=== PATIENT | female | born 1980 | race American Indian/Alaskan Native ===

== ENCOUNTER 2022-01-09 08:25 | Outpatient (CLI) | payer BC ==
--- NOTE | 2022-01-09 15:30 | Treadmill Report ---
DATE OF SERVICE: 01/09/2022 TREADMILL NUCLEAR STRESS TEST REFERRING PHYSICIAN: Dr. Landry. PROTOCOL: The patient was assessed in postoperative state and given 10 mCi of technetium at rest. The patient had rest imaging. The patient underwent exercise treadmill stress test per protocol. At peak stress, the patient was given 26 mCi of technetium. Shortly thereafter, the patient had stress imaging. Resting blood pressure is 120/80, resting heart rate is 80. The patient exercised on a standard David protocol treadmill for [address] changes, arrhythmia or chest pain during stress or recovery. Peak heart rate is 156, which is 89% of predicted. Peak blood pressure is 158/90. Treadmill portion of the stress test is normal. Nuclear portion is pending. CONCLUSIONS: 1. Normal exercise treadmill stress test without evidence of ST changes, arrhythmias, or chest pain during stress or recovery. 2. Average exercise tolerance. 3. Appropriate heart rate/blood pressure response in recovery. 4. Nuclear images pending and will be dictated separately. TID: [id number] RECEIPT: [id number] SBM/KELSEA
--- NOTE | 2022-01-10 11:49 | Treadmill Report ---
DATE OF SERVICE: 01/09/2022 NUCLEAR STRESS TEST REFERRING PHYSICIAN: Hospitalist gerson. PROTOCOL: The patient was brought to stress test lab in postabsorptive state, given 10 mCi of technetium at rest. The patient had an exercise stress test per standard protocol. At peak stress, the patient was given 26 mCi of technetium. Shortly thereafter, the patient had stress imaging. Please see my full dictation on the treadmill portion of the test. Nuclear imaging examined carefully in horizontal long axis, vertical long axis, short axis views. There was breast attenuation identified. There is a medium size, partially reversible mid anterior defect, which may be artifactual. Suggest clinical correlation may be due to breast attenuation. Technically difficult study. Normal left ventricular systolic performance without evidence of transient ischemic dilatation or stress-induced segmental wall motion abnormalities. CONCLUSIONS: Technically difficult study, mildly abnormal with a mild mid anterior reversible defect which may be due to breast attenuation versus mild ischemia. Normal left ventricular systolic performance. Recommend clinical correlation by referring tax attorney. TID: [id number] RECEIPT: [id number] SBDaniel/ERIK
== END 2022-01-09 08:26 | disposition home or self-care (01) ==
LOC: ECHO 08:25
PROVIDERS: ATTEND Internal Medicine Cardiovascular Disease
DX: I10 Essential (primary) hypertension (principal); R00.2 Palpitations; E66.09 Other obesity due to excess calories
CPT/HCPCS: 78452; 93017; A9502; C8929; 93306

== ENCOUNTER 2022-04-07 16:18 | Emergency (ER) | payer BC ==
[2022-04-07 16:24] VITALS: BP 171/77
[2022-04-07] MEDS ORDERED: SODIUM CHLORIDE 0.9% 1000 ML 1,000 ML IV ONE (17:06)
[2022-04-07] MEDS ORDERED: DICYCLOMINE 20 MG/2 ML INJ IM ONE (17:06)
[2022-04-07] MEDS ORDERED: ONDANSETRON 4 MG ODT TAB PO/SL ONE (17:06)
--- NOTE | 2022-04-07 17:34 | Emergency Department Report ---
ED Abdominal Pain HPI - General Chief Complaint: Abdominal Pain Stated Complaint: ABD PAIN Source: patient Mode of arrival: Ambulatory Limitations: No Limitations - History of Present Illness Initial Comments: 41-year-old female presents to the ED complaint of abdominal pain x3 days after eating [employer]. Patient states she took some Tylenol and Pepto-Bismol without any relief. Patient complaining of nausea. Patient denies any chest pain or shortness of breath. She states that she had some lower back pain. She states that she had a history of sciatica pain .Patient denies any dysuria. x2 weeks patient is alert oriented x3. No acute distress noted .No ill appearance noted. MD Complaint: abdominal pain Onset/Timin -: days(s) Location: periumbilical Radiation: none Severity scale (0 -10): 10 Improves With: nothing Worsens With: nothing - Related Data Previous Rx's Medication Instructions Recorded Last Taken Type Hyoscyamine Subl [Levsin Sl 0.125 0.125 mg SL Q6HR PRN 5 Days #20 tab 04/07/22 Unknown Rx TAB] Ketorolac [Toradol] 10 mg PO Q6H PRN 5 Days #20 tab 04/07/22 Unknown Rx levoFLOXacin [Levaquin TAB] 750 mg PO QDAY 7 Days #7 tablet 04/07/22 Unknown Rx Allergies Allergy/AdvReac Type Severity Reaction Status Date / Time latex Allergy Rash Verified 04/07/22 16:20 sulfamethoxazole Allergy Itching Verified 04/07/22 16:20 [From Bactrim] trimethoprim [From Bactrim] Allergy Itching Verified 04/07/22 16:20 ED Review of Systems ROS: Stated complaint: ABD PAIN Other details as noted in HPI Constitutional: denies: chills, fever Eyes: denies: eye pain, eye discharge, vision change ENT: denies: ear pain, throat pain Respiratory: denies: cough, shortness of breath, wheezing Cardiovascular: denies: chest pain, palpitations Endocrine: no symptoms reported Gastrointestinal: denies: abdominal pain, nausea, diarrhea Genitourinary: denies: urgency, dysuria, discharge Musculoskeletal: denies: back pain, joint swelling, arthralgia Skin: denies: rash, lesions Neurological: denies: headache, weakness, paresthesias Psychiatric: denies: anxiety, depression Hematological/Lymphatic: denies: easy bleeding, easy bruising ED Past Medical Hx - Past Medical History Previous Medical History?: Yes Hx Hypertension: Yes Hx Diabetes: Yes (pre diabetic) - Surgical History Past Surgical History?: Yes Hx Cholecystectomy: Yes Additional Surgical History: Hysterectomy 2011 - Medications Home Medications: Home Medications Medication Instructions Recorded Confirmed Last Taken Type Hyoscyamine Subl [Levsin Sl 0.125 0.125 mg SL Q6HR PRN 5 Days #20 tab 04/07/22 Unknown Rx TAB] Ketorolac [Toradol] 10 mg PO Q6H PRN 5 Days #20 tab 04/07/22 Unknown Rx levoFLOXacin [Levaquin TAB] 750 mg PO QDAY 7 Days #7 tablet 04/07/22 Unknown Rx ED Physical Exam - General Limitations: No Limitations General appearance: alert, in no apparent distress - Head Head exam: Present: atraumatic, normocephalic - Eye Eye exam: Present: normal appearance - ENT ENT exam: Present: mucous membranes moist - Neck Neck exam: Present: normal inspection - Respiratory Respiratory exam: Present: normal lung sounds bilaterally. Absent: respiratory distress - Cardiovascular Cardiovascular Exam: Present: regular rate, normal rhythm. Absent: systolic murmur, diastolic murmur, rubs, gallop - GI/Abdominal GI/Abdominal exam: Present: soft, normal bowel sounds - Extremities Exam Extremities exam: Present: normal inspection - Back Exam Back exam: Present: normal inspection - Neurological Exam Neurological exam: Present: alert, oriented X3 - Psychiatric Psychiatric exam: Present: normal affect, normal mood - Skin Skin exam: Present: warm, dry, intact, normal color. Absent: rash ED Course Vital Signs 04/07/22 04/07/22 04/07/22 16:21 18:28 20:22 Temperature 98.0 F Pulse Rate 112 H 88 Respiratory 18 Rate Blood Pressure 171/77 O2 Sat by Pulse 98 98 Oximetry ED Medical Decision Making - Lab Data Result diagrams: 04/07/22 17:52 04/07/22 17:52 - Medical Decision Making 41-year-old female presents to the ED complaint of abdominal pain x3 days after eating [employer]. Patient states she took some Tylenol and Pepto-Bismol without any relief. Patient complaining of nausea. Patient denies any chest pain or shortness of breath. She states that she had some lower back pain. She states that she had a history of sciatica pain .Patient denies any dysuria. x2 weeks patient is alert oriented x3. No acute distress noted .No ill appearance noted. Physical examination is unremarkable. No tenderness on palpation. Patient is pointing to the umbilical area stating pain is is a 10 out of 10 undescribable. Rocephin 1 g given IM. Normal saline 100 mg given IV, Zofran 4 mg given IV. patient is given morphine 4 mg IV states pain is better at time of discharge pain is a 0 out of 10. Rechecked the patient is resting quietly quietly and comfortable and feeling better. I discussed the results of diagnostic study, my clinical impression and the plan for further treatment with the patient. Patient agrees with plan and discharge at this present time. All question addressed. I have given the patient instruction regarding a diagnosis ,expectation ,follow- up and return precaution. I explained to the patient that emergent condition may arise and to return to the ED for new worsen and any new persisting condition. I have explained the importance of following up with the primary care physician or referral physician listed below has instructed. The patient verbalized understanding of discharge instruction. Abnormal Lab Results 04/07/22 04/07/22 04/07/22 17:06 17:52 17:52 WBC 7.4 RBC 4.80 Hgb 13.6 Hct 40.6 MCV 85 MCH 28 MCHC 34 RDW 13.8 Plt Count 304 Lymph % (Auto) 27.0 [place] % (Auto) 10.0 H Eos % (Auto) 1.8 Baso % (Auto) 0.8 Lymph # (Auto) 2.0 [place] # (Auto) 0.7 Eos # (Auto) 0.1 Baso # (Auto) 0.1 Seg Neutrophils % 60.4 Seg Neutrophils # 4.5 Sodium 139 Potassium 4.4 Chloride 100.5 Carbon Dioxide 28 Anion Gap 15 BUN 12 Creatinine 1.0 Estimated GFR > 60 BUN/Creatinine Ratio 12 Glucose 131 H Calcium 9.2 Total Bilirubin 0.50 AST 25 ALT 33 Alkaline Phosphatase 80 Troponin T < 0.010 Total Protein 6.4 Albumin 3.9 Albumin/Globulin Ratio 1.6 Lipase 26 HCG, Quant Urine Color Yellow Urine Turbidity Clear Urine pH 5.0 Ur Specific [place] 1.012 Urine Protein 30 mg/dl Urine Glucose (UA) Neg Urine Ketones Neg Urine Blood Lg Urine Nitrite Neg Urine Bilirubin Neg Urine Urobilinogen < 2.0 Ur Leukocyte Esterase Neg Urine WBC (Auto) 10.0 H Urine RBC (Auto) 37.0 U Epithel Cells (Auto) 2.0 Urine Bacteria (Auto) 1+ Urine Mucus 2+ 04/07/22 17:52 WBC RBC Hgb Hct MCV MCH MCHC RDW Plt Count Lymph % (Auto) [place] % (Auto) Eos % (Auto) Baso % (Auto) Lymph # (Auto) [place] # (Auto) Eos # (Auto) Baso # (Auto) Seg Neutrophils % Seg Neutrophils # Sodium Potassium Chloride Carbon Dioxide Anion Gap BUN Creatinine Estimated GFR BUN/Creatinine Ratio Glucose Calcium Total Bilirubin AST ALT Alkaline Phosphatase Troponin T Total Protein Albumin Albumin/Globulin Ratio Lipase HCG, Quant < 2 Urine Color Urine Turbidity Urine pH Ur Specific [place] Urine Protein Urine Glucose (UA) Urine Ketones Urine Blood Urine Nitrite Urine Bilirubin Urine Urobilinogen Ur Leukocyte Esterase Urine WBC (Auto) Urine RBC (Auto) U Epithel Cells (Auto) Urine Bacteria (Auto) Urine Mucus Critical care attestation.: If time is entered above; I have spent that time in minutes in the direct care of this critically ill patient, excluding procedure time. ED Disposition Clinical Impression: Acute urinary tract infection Disposition: HOME / SELF CARE / HOMELESS Is pt being admited?: No Does the pt Need Aspirin: No Condition: Stable Instructions: Urinary Tract Infection, Adult, [id number], Abdominal Pain (ED) Additional Instructions: Take medication as prescribed return to ED for any worsening symptom Prescriptions: levoFLOXacin [Levaquin TAB] 750 mg PO QDAY 7 Days #7 tablet Hyoscyamine Subl [Levsin Sl 0.125 TAB] 0.125 mg SL Q6HR PRN 5 Days #20 tab PRN Reason: bladder spasm Ketorolac [Toradol] 10 mg PO Q6H PRN 5 Days #20 tab PRN Reason: Pain Referrals: MARY HONG MD [Primary Care Provider] - 3-5 Days Time of Disposition: 20:12
[2022-04-07 18:17] LABS: Basophils # (Auto) 0.1 K/mm3 (0.0-0.1); Basophils % (Auto) 0.8 % (0.0-1.8); Eosinophils # (Auto) 0.1 K/mm3 (0.0-0.4); Eosinophils % (Auto) 1.8 % (0.0-4.3); Hematocrit 40.6 % (30.3-42.9); Hemoglobin 13.6 gm/dl (10.1-14.3); Mean Corpuscular HGB Conc 34 % (30-34); Mean Corpuscular Volume 85 fl (79-97); Monocytes # (Auto) 0.7 K/mm3 (0.0-0.8); Platelet Count 304 K/mm3 (140-440); Red Cell Distribution Width 13.8 % (13.2-15.2)
[2022-04-07] MEDS ORDERED: MORPHINE 4 MG/1 ML INJ IV ONE (18:21)
[2022-04-07 18:34] LABS: Alanine Aminotransferase 33 units/L (7-56); Albumin 3.9 g/dL (3.9-5); BUN/Creatinine Ratio 12; Blood Urea Nitrogen 12 mg/dL (7-17); Calcium 9.2 mg/dL (8.4-10.2); Hemolysis Index 5
[2022-04-07 19:47] LABS: Bacteria,Urine 1+ /HPF (Negative); Bilirubin,Urine NEG (Negative); Blood,Urine LG (Negative); Color,Urine Yellow (Yellow); Mucus,Urine 2+ /HPF; Urobilinogen,Urine < 2.0 mg/dL (<2.0)
[2022-04-07] MEDS ORDERED: LIDOCAINE-MPF (1%) 10 MG/1 ML VIAL 5 ML INFILTRATI ONE (19:56)
--- NOTE | 2022-04-08 09:21 | Electrocardiograph Report ---
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
== END 2022-04-07 20:38 | disposition home or self-care (01) ==
LOC: EEVIPCON 16:18 → ED 16:18
DX: N39.0 Urinary tract infection, site not specified (principal); Z88.2 Allergy status to sulfonamides; Z91.040 Latex allergy status; I10 Essential (primary) hypertension
CPT/HCPCS: 36415; 80053; 81001; 83690; 84484; 84702; 85025; 87086; 93005; 96361; 96372; 96374; 99283; J0500; J0696; J2270; J3490; J7030; Q0162

== ENCOUNTER 2022-04-22 11:04 | Emergency (ER) | payer BC ==
[2022-04-22 12:04] VITALS: BP 148/93
[2022-04-22 13:06] LABS: Bilirubin,Urine NEG (Negative); Blood,Urine NEG (Negative); Color,Urine Yellow (Yellow); Mucus,Urine 2+ /HPF; Protein,Urine <15 mg/dL mg/dL (Negative); Urobilinogen,Urine < 2.0 mg/dL (<2.0); WBC,Urine < 1.0 /HPF (0.0-6.0)
[2022-04-22] MEDS ORDERED: dexAMETHasone 20 MG/5 ML VIAL IM ONE (14:43)
[2022-04-22] MEDS ORDERED: KETOROLAC 60 MG/2 ML INJ IM ONE (14:43)
--- NOTE | 2022-04-22 14:46 | Emergency Department Report ---
ED Back Pain/Injury HPI - General Chief Complaint: Urogenital-Female Stated Complaint: LOWER BACK HURT Source: patient Limitations: No Limitations - History of Present Illness Initial Comments: 41-year-old female presents to the ED complaining right back pain x1 day. Patient states that she had similar pain in the past. Patient denies any dysuria vaginal discharge ,trauma .fever ,recent steroid, or IV drug use. She is ambulatory. States pain is a current 5 out of 10. Patient is alert and oriented x3. No acute distress noted. No ill appearance noted MD Complaint: back pain Onset/Timin -: days(s) Similar Symptoms Previously: Yes Place: work Radiation: none Severity scale (0 -10): 8 Quality: aching Consistency: intermittent Improves With: none - Related Data Previous Rx's Medication Instructions Recorded Last Taken Type Hyoscyamine Subl [Levsin Sl 0.125 0.125 mg SL Q6HR PRN 5 Days #20 tab 04/07/22 Unknown Rx TAB] Ketorolac [Toradol] 10 mg PO Q6H PRN 5 Days #20 tab 04/07/22 Unknown Rx levoFLOXacin [Levaquin TAB] 750 mg PO QDAY 7 Days #7 tablet 04/07/22 Unknown Rx Naproxen [Naprosyn] 500 mg PO BID 15 Days #30 tablet 04/22/22 Unknown Rx methOCARBAMOL [Robaxin TAB] 750 mg PO Q8H PRN 15 Days #30 tab 04/22/22 Unknown Rx Allergies Allergy/AdvReac Type Severity Reaction Status Date / Time latex Allergy Rash Verified 04/07/22 16:20 sulfamethoxazole Allergy Itching Verified 04/07/22 16:20 [From Bactrim] trimethoprim [From Bactrim] Allergy Itching Verified 04/07/22 16:20 ED Review of Systems ROS: Stated complaint: LOWER BACK HURT Other details as noted in HPI Constitutional: denies: chills, fever Eyes: denies: eye pain, eye discharge, vision change ENT: denies: ear pain, throat pain Respiratory: denies: cough, shortness of breath, wheezing Cardiovascular: denies: chest pain, palpitations Endocrine: no symptoms reported Gastrointestinal: denies: abdominal pain, nausea, diarrhea Genitourinary: denies: urgency, dysuria, discharge Musculoskeletal: back pain. denies: joint swelling, arthralgia Skin: denies: rash, lesions Neurological: denies: headache, weakness, paresthesias Psychiatric: denies: anxiety, depression Hematological/Lymphatic: denies: easy bleeding, easy bruising ED Past Medical Hx - Past Medical History Previous Medical History?: Yes Hx Hypertension: Yes Hx Diabetes: Yes (pre diabetic) - Surgical History Past Surgical History?: Yes Hx Cholecystectomy: Yes Additional Surgical History: Hysterectomy 2011 - Medications Home Medications: Home Medications Medication Instructions Recorded Confirmed Last Taken Type Hyoscyamine Subl [Levsin Sl 0.125 0.125 mg SL Q6HR PRN 5 Days #20 tab 04/07/22 Unknown Rx TAB] Ketorolac [Toradol] 10 mg PO Q6H PRN 5 Days #20 tab 04/07/22 Unknown Rx levoFLOXacin [Levaquin TAB] 750 mg PO QDAY 7 Days #7 tablet 04/07/22 Unknown Rx Naproxen [Naprosyn] 500 mg PO BID 15 Days #30 tablet 04/22/22 Unknown Rx methOCARBAMOL [Robaxin TAB] 750 mg PO Q8H PRN 15 Days #30 tab 04/22/22 Unknown Rx ED Physical Exam - General Limitations: No Limitations General appearance: alert, in no apparent distress - Head Head exam: Present: atraumatic, normocephalic - Eye Eye exam: Present: normal appearance - ENT ENT exam: Present: mucous membranes moist - Neck Neck exam: Present: normal inspection - Respiratory Respiratory exam: Present: normal lung sounds bilaterally. Absent: respiratory distress - Cardiovascular Cardiovascular Exam: Present: regular rate, normal rhythm. Absent: systolic murmur, diastolic murmur, rubs, gallop - GI/Abdominal GI/Abdominal exam: Present: soft, normal bowel sounds - Extremities Exam Extremities exam: Present: normal inspection - Back Exam Back exam: Present: normal inspection, full ROM, muscle spasm. Absent: CVA tenderness (R), CVA tenderness (L) - Neurological Exam Neurological exam: Present: alert, oriented X3 - Psychiatric Psychiatric exam: Present: normal affect, normal mood - Skin Skin exam: Present: warm, dry, intact, normal color. Absent: rash ED Course Vital Signs 04/22/22 11:59 Temperature 98 F Pulse Rate 75 Respiratory 20 Rate Blood Pressure 148/93 [Right] O2 Sat by Pulse 96 Oximetry ED Medical Decision Making - Medical Decision Making 41-year-old female presents to the ED complaining right back pain x1 day. Patient states that she had similar pain in the past. Patient denies any dysuria vaginal discharge ,trauma .fever ,recent steroid, or IV drug use. She is ambulatory. States pain is a current 5 out of 10. Patient is alert and oriented x3. No acute distress noted. No ill appearance noted. Physical exam physical examination is unremarkable. Patient is pointing toward low lumbar pain. Rechecked the patient is resting quietly quietly and comfortable and feeling better. I discussed the results of diagnostic study, my clinical impression and the plan for further treatment with the patient. Patient agrees with plan and discharge at this present time. All question addressed. I have given the patient instruction regarding a diagnosis ,expectation ,follow- up and return precaution. I explained to the patient that emergent condition may arise and to return to the ED for new worsen and any new persisting condition. I have explained the importance of following up with the primary care physician or referral physician listed below has instructed. The patient verbalized understanding of discharge instruction. Critical care attestation.: If time is entered above; I have spent that time in minutes in the direct care of this critically ill patient, excluding procedure time. ED Disposition Clinical Impression: Low back pain Qualifiers: Chronicity: acute Back pain laterality: bilateral Sciatica presence: without sciatica Qualified Code(s): M54.50 - Low back pain, unspecified Disposition: 01 HOME / SELF CARE / HOMELESS Is pt being admited?: No Does the pt Need Aspirin: No Condition: Stable Instructions: Back Exercises, [id number], Preventing Back Pain for New Parents, Acute Back Pain, Adult Additional Instructions: take medication as prescribe Return to ED for any worsening symptom Prescriptions: Naproxen [Naprosyn] 500 mg PO BID 15 Days #30 tablet methOCARBAMOL [Robaxin TAB] 750 mg PO Q8H PRN 15 Days #30 tab PRN Reason: Pain, Moderate (4-6) Referrals: FEDREICO RENE MD [Primary Care Provider] - 3-5 Days Time of Disposition: 14:58
== END 2022-04-22 16:00 | disposition home or self-care (01) ==
LOC: ED 11:04
DX: M54.50 Low back pain, unspecified (principal); I10 Essential (primary) hypertension; E11.9 Type 2 diabetes mellitus without complications; Z90.49 Acquired absence of other specified parts of digestive tract; Z90.710 Acquired absence of both cervix and uterus; Z88.2 Allergy status to sulfonamides; Z88.8 Allergy status to other drugs, medicaments and biological substances; Z91.040 Latex allergy status; Z79.899 Other long term (current) drug therapy
CPT/HCPCS: 81001; 96372; 99283; J1100; J1885